=== PATIENT | male | born 1980 | race Caucasian/White ===

== ENCOUNTER 2021-07-27 01:51 | Emergency (ER) | payer OTHER ==
[2021-07-27] MEDS ORDERED: PERCOCET 5-3251 EACH PO (04:45)
== END 2021-07-27 04:42 | disposition home or self-care (01) ==
LOC: ER1 01:51
DX: S42.031A Displaced fracture of lateral end of right clavicle, initial encounter for closed fracture (principal); S60.011A Contusion of right thumb without damage to nail, initial encounter; S20.211A Contusion of right front wall of thorax, initial encounter; Z88.0 Allergy status to penicillin; F17.200 Nicotine dependence, unspecified, uncomplicated; V86.96XA Unspecified occupant of dirt bike or motor/cross bike injured in nontraffic accident, initial encounter
CPT/HCPCS: 71046; 73030; 73140; 90715; 99283

== ENCOUNTER → 2021-08-05 | Day surgery (SDC) | payer OTHER ==
[~2021-08-05] VITALS: Ht 180.3 cm; Wt 60.8 kg
[~2021-08-05] MED LIST: HYDROCODON-ACE1 EAC6 PO; PERCOCET 5-3251 EACH PO
[2021-08-05 07:31] LABS: HEMOGLOBIN 13.7 gm/dl (14.0-17.5); RED BLOOD COUNT 4.53 M/UL (4.20-5.50); WHITE BLOOD COUNT 6.3 K/UL (4.5-11.0)
[2021-08-05 07:53] LABS: BUN/CREATININE RATIO 22 (0-10)
== END | disposition home or self-care (01) ==
LOC: OR 06:40
PROVIDERS: Orthopaedic Surgery
DX: S42.021A Displaced fracture of shaft of right clavicle, initial encounter for closed fracture (principal); K21.9 Gastro-esophageal reflux disease without esophagitis; Z88.0 Allergy status to penicillin; V18.0XXA Pedal cycle driver injured in noncollision transport accident in nontraffic accident, initial encounter; Z20.822 Contact with and (suspected) exposure to COVID-19; F17.210 Nicotine dependence, cigarettes, uncomplicated; G43.909 Migraine, unspecified, not intractable, without status migrainosus
CPT/HCPCS: 36415; 73000; 76000; 80048; 85025; J0171; J0690; J1100; J2001; J2250; J2405; J2704; J2710; J2795; J3010; J7030; J7120; U0002

== ENCOUNTER 2022-05-28 18:57 | Emergency (ER) | payer OTHER ==
[2022-05-28 20:10] LABS: HEMOGLOBIN 13.8 gm/dl (14.0-17.5); RED BLOOD COUNT 4.61 M/UL (4.20-5.50); WHITE BLOOD COUNT 3.1 K/UL (4.5-11.0)
[2022-05-28 20:44] LABS: BUN/CREATININE RATIO 15 (0-10)
[2022-05-28] MEDS ORDERED: PROTONIX40 MG PO (22:28)
== END 2022-05-28 23:02 | disposition home or self-care (01) ==
LOC: ER1 18:57
PROVIDERS: Physician Assistant Medical
DX: U07.1 COVID-19 (principal); E87.6 Hypokalemia; F17.210 Nicotine dependence, cigarettes, uncomplicated; Z88.0 Allergy status to penicillin
CPT/HCPCS: 0240U; 80053; 81001; 85025; 99284